=== PATIENT | female | born 2000 | race Caucasian/White ===

== ENCOUNTER 2022-03-19 11:57 | Emergency (ER) | payer OTHER ==
[~2022-03-19] VITALS: Ht 165.1 cm; Wt 146.5 kg
[~2022-03-19 11:57] MED LIST: CODACEE120 PO; CODGUAEL PO; IBUP600 PO; LOPE2C PO; NEOPOLHYDS OT; PROM12.5S PR; PROM25 PO; RXPROM12.S PR; SULTRIEL PO
[2022-03-19 14:15] LABS: Calcium, Ionized (POC) 1.11 mmol/L (1.10-1.46); Chloride (POC) 108 mmol/L (98-108); Creatinine (POC) 0.4 mg/dL (0.6-1.0); Glucose (ISTAT POC) 85 mg/dL (70-99); Hemoglobin (POC) 12.9 g/dL (12.0-16.0); Potassium (POC) 4.1 mmol/L (3.5-5.5); Sodium (POC) 136 mmol/L (135-148); Total CO2 (POC) 18 mmol/L (21-32)
== END 2022-03-19 14:58 | disposition home or self-care (01) ==
LOC: ER 11:57
PROVIDERS: Emergency Medicine
DX: O20.0 Threatened abortion (principal); Z3A.09 9 weeks gestation of pregnancy
CPT/HCPCS: 36415; 76801; 80047; 84702; 85014

== ENCOUNTER 2022-03-26 10:47 | Emergency (ER) | payer OTHER ==
[~2022-03-26] VITALS: Ht 165.1 cm; Wt 144.7 kg
[2022-03-26 11:44] LABS: BASOPHILS ABSOLUTE AUTO 0.06 K/mm3 (0.00-0.23); BASOPHILS PERCENT AUTO 0 % (0-2); EOSINOPHILS PERCENT AUTO 1 % (0-6); Hematocrit 31.7 % (33.0-51.0); Hemoglobin 10.5 g/dL (11.5-16.0); IMMATURE GRAN ABSOLUTE AUTO 0.15 K/mm3 (0.00-0.10); IMMATURE GRAN PERCENT AUTO 1 % (0-1); LYMPHOCYTES ABSOLUTE AUTO 2.74 K/mm3 (0.84-5.20); LYMPHOCYTES PERCENT AUTO 17 % (21-46); MONOCYTES ABSOLUTE AUTO 0.96 K/mm3 (0.16-1.47); MONOCYTES PERCENT AUTO 6 % (4-13); Mean Corpuscular HGB 28.6 pg (26.0-34.0); Mean Corpuscular HGB Conc 33.1 g/dL (31.5-36.5); Mean Corpuscular Volume 86 fL (80-100); Mean Platelet Volume 9.1 fL (9.1-12.4); NEUTROPHILS PERCENT AUTO 76 % (41-73); Platelet Count 356 K/mm3 (150-400); RDW Coefficient Variation 13.1 % (11.7-14.2); RDW Standard Deviation 41.1 fL (35.1-46.3); Red Blood Cell Count 3.67 M/mm3 (3.80-5.20); White Blood Cell Count 16.41 K/mm3 (4.00-11.30)
[2022-03-26] MEDS ORDERED: GLUCOPHAGE1000 M1 PO (13:39)
[2022-03-26 15:16] LABS: Bun/Creatinine Ratio 22.7 (12.0-20.0); Calcium, Blood 8.8 mg/dL (8.5-10.1); Creatinine, Blood 0.57 mg/dL (0.40-1.00); Potassium, Blood 4.4 mmol/L (3.5-5.5)
[2022-03-26] MEDS ORDERED: ONDA4ODT MM (16:17)
== END 2022-03-26 16:40 | disposition home or self-care (01) ==
LOC: ER 10:47
PROVIDERS: Emergency Medicine; Physician Assistant
DX: O03.9 Complete or unspecified spontaneous abortion without complication (principal); Z79.899 Other long term (current) drug therapy
CPT/HCPCS: 36415; 76801; 80048; 84702; 85025; J1885; J2405; J7030

== ENCOUNTER 2023-04-21 21:43 | Inpatient (IN) | payer OTHER ==
[~2023-04-21] VITALS: Ht 165.1 cm; Wt 148.6 kg
[~2023-04-21 21:43] MED LIST changes: +GLUCOPHAGE1000 M1 PO; +ONDA4ODT MM
[2023-04-21 22:33] VITALS: BP 136/74
[2023-04-21] MEDS ORDERED: LABE200 PO (22:54)
[2023-04-21] MEDS ORDERED: Calcium Carbon500 MG PO (22:54)
[2023-04-21 22:57] LABS: BASOPHILS ABSOLUTE AUTO 0.03 K/mm3 (0.00-0.23); BASOPHILS PERCENT AUTO 0 % (0-2); EOSINOPHILS ABSOLUTE AUTO 0.22 K/mm3 (0.00-0.68); EOSINOPHILS PERCENT AUTO 2 % (0-6); Hematocrit 36.3 % (33.0-51.0); Hemoglobin 11.9 g/dL (11.5-16.0); IMMATURE GRAN ABSOLUTE AUTO 0.06 K/mm3 (0.00-0.10); IMMATURE GRAN PERCENT AUTO 1 % (0-1); LYMPHOCYTES ABSOLUTE AUTO 3.01 K/mm3 (0.84-5.20); LYMPHOCYTES PERCENT AUTO 28 % (21-46); MONOCYTES ABSOLUTE AUTO 0.78 K/mm3 (0.16-1.47); MONOCYTES PERCENT AUTO 7 % (4-13); Mean Corpuscular HGB 28.1 pg (26.0-34.0); Mean Corpuscular HGB Conc 32.8 g/dL (31.5-36.5); Mean Corpuscular Volume 86 fL (80-100); NEUTROPHILS ABSOLUTE AUTO 6.76 K/mm3 (1.96-9.15); NEUTROPHILS PERCENT AUTO 62 % (41-73); Platelet Count 303 K/mm3 (150-400); RDW Coefficient Variation 14.6 % (11.7-14.2); RDW Standard Deviation 45.2 fL (35.1-46.3); Red Blood Cell Count 4.23 M/mm3 (3.80-5.20); White Blood Cell Count 10.86 K/mm3 (4.00-11.30)
[2023-04-21 23:51] LABS: Albumin, Blood 2.4 g/dL (3.4-5.0); Albumin/Globulin Ratio 0.6 (0.8-1.8); Bilirubin, Total 0.3 mg/dL (0.1-1.0); Calcium, Blood 9.6 mg/dL (8.5-10.1); Creatinine, Blood 0.76 mg/dL (0.40-1.00); Potassium, Blood 3.9 mmol/L (3.5-5.5); Total Protein, Blood 6.4 g/dL (6.4-8.2)
[2023-04-22] VITALS (37 sets, daily range): BP systolic 106–160; BP diastolic 57–101
--- NOTE | 2023-04-22 10:27 | NUR ---
REPORT TO VASQUEZ HARVEY
[2023-04-23] VITALS (27 sets, daily range): BP systolic 91–144; BP diastolic 57–94
[2023-04-23 16:43] LABS: PCO2 Cord - Arterial 58.3 mmHg (40-50); PO2 Cord - Arterial 21.3 mmHg (16-20); pH Cord - Arterial 7.21 (7.28-7.35)
[2023-04-23 16:46] LABS: PCO2 Cord - Venous 48.8 mmHg (40-50); PO2 Cord - Venous 34.6 mmHg (28-32); pH Umbilical Cord - Venous 7.29 (7.26-7.35)
[2023-04-24] VITALS (8 sets, daily range): BP systolic 119–148; BP diastolic 59–88
[2023-04-24 05:58] LABS: BASOPHILS ABSOLUTE AUTO 0.03 K/mm3 (0.00-0.23); BASOPHILS PERCENT AUTO 0 % (0-2); EOSINOPHILS PERCENT AUTO 0 % (0-6); Hemoglobin 9.2 g/dL (11.5-16.0); IMMATURE GRAN ABSOLUTE AUTO 0.18 K/mm3 (0.00-0.10); IMMATURE GRAN PERCENT AUTO 1 % (0-1); LYMPHOCYTES ABSOLUTE AUTO 2.35 K/mm3 (0.84-5.20); LYMPHOCYTES PERCENT AUTO 12 % (21-46); MONOCYTES ABSOLUTE AUTO 1.09 K/mm3 (0.16-1.47); MONOCYTES PERCENT AUTO 6 % (4-13); Mean Corpuscular HGB 28.2 pg (26.0-34.0); Mean Corpuscular HGB Conc 32.9 g/dL (31.5-36.5); Mean Corpuscular Volume 86 fL (80-100); NEUTROPHILS ABSOLUTE AUTO 15.37 K/mm3 (1.96-9.15); NEUTROPHILS PERCENT AUTO 81 % (41-73); Platelet Count 223 K/mm3 (150-400); RDW Coefficient Variation 14.8 % (11.7-14.2); RDW Standard Deviation 46.1 fL (35.1-46.3); Red Blood Cell Count 3.26 M/mm3 (3.80-5.20); White Blood Cell Count 19.02 K/mm3 (4.00-11.30)
--- NOTE | 2023-04-24 14:59 | NUR ---
agree with assessment
[2023-04-25 03:56] VITALS: BP 123/68
[2023-04-25 05:46] LABS: BASOPHILS ABSOLUTE AUTO 0.04 K/mm3 (0.00-0.23); BASOPHILS PERCENT AUTO 0 % (0-2); EOSINOPHILS ABSOLUTE AUTO 0.15 K/mm3 (0.00-0.68); EOSINOPHILS PERCENT AUTO 1 % (0-6); Hemoglobin 8.2 g/dL (11.5-16.0); IMMATURE GRAN ABSOLUTE AUTO 0.15 K/mm3 (0.00-0.10); IMMATURE GRAN PERCENT AUTO 1 % (0-1); LYMPHOCYTES ABSOLUTE AUTO 4.15 K/mm3 (0.84-5.20); LYMPHOCYTES PERCENT AUTO 28 % (21-46); MONOCYTES ABSOLUTE AUTO 0.84 K/mm3 (0.16-1.47); MONOCYTES PERCENT AUTO 6 % (4-13); Mean Corpuscular HGB Conc 31.5 g/dL (31.5-36.5); Mean Corpuscular Volume 89 fL (80-100); Mean Platelet Volume 10.1 fL (9.1-12.4); NEUTROPHILS ABSOLUTE AUTO 9.49 K/mm3 (1.96-9.15); NEUTROPHILS PERCENT AUTO 64 % (41-73); Platelet Count 238 K/mm3 (150-400); RDW Coefficient Variation 15.4 % (11.7-14.2); Red Blood Cell Count 2.93 M/mm3 (3.80-5.20); White Blood Cell Count 14.82 K/mm3 (4.00-11.30)
[2023-04-25 07:29] VITALS: BP 121/63
[2023-04-25] MEDS ORDERED: DOC250 PO (08:07)
[2023-04-25] MEDS ORDERED: Percocet 5-3251 EACH PO (08:07)
[2023-04-25] MEDS ORDERED: IBUP800 PO (08:07)
[2023-04-25] MEDS ORDERED: LABE100 PO (08:56)
--- NOTE | 2023-04-25 10:21 | NUR ---
GETTING READY TO GO HOME, JUST NEEDS BANDS MATCHED, HAS DC INSTRUCTIONS, HAS SCRIPTS FOR MEDS, HAS PPFU APPT HAS APPT FOR BABY TO ALSO RETURN ON THE 24 FOR JAUNDICE AND WT CHECK, ENCOUARGED TO CALL WITH QUESTIONS,
--- NOTE | 2023-04-25 11:00 | NUR ---
DC HOME WITH BABY, FOB CARRIED BABY OUT, PT WALKED OUT SLOWLY, PT HAS SCRIPTS AND PPFU APPT MADE HAS APPT WITH OFFICE TO REMOVE TIM DRESSING, BABY IS WELL, VOIDING AND STOOLING. HAS PPFU FOR FRIDAY AND BABY TO COME BACK ON XM BARBIE FOR TSB WT CHECK. PT DENIES ANY PROBLEMS AND ENCOURAGED TO CALL IF HAS ANY
== END 2023-04-25 10:55 | disposition home or self-care (01) | DRG 788 ==
LOC: OBS 21:43 → BC 21:44 → OBS 21:54 → BC 21:56
PROVIDERS: Obstetrics & Gynecology; ADMIT Advanced Practice Midwife
PROC: 4A1HXCZ Monitoring of Products of Conception, Cardiac Rate, External Approach (ICD-10-PCS; 2023-04-23)
PROC: 10D00Z1 Extraction of Products of Conception, Low, Open Approach (ICD-10-PCS; principal; 2023-04-23 15:30)
DX: O14.04 Mild to moderate pre-eclampsia, complicating childbirth (principal); O62.1 Secondary uterine inertia; O69.81X0 Labor and delivery complicated by cord around neck, without compression, not applicable or unspecified; O99.824 Streptococcus B carrier state complicating childbirth; Z3A.38 38 weeks gestation of pregnancy; Z37.0 Single live birth; O75.5 Delayed delivery after artificial rupture of membranes; O99.214 Obesity complicating childbirth; O76 Abnormality in fetal heart rate and rhythm complicating labor and delivery; Z79.899 Other long term (current) drug therapy; Z79.2 Long term (current) use of antibiotics
CPT/HCPCS: 36415; 51702; 59070; 80053; 82803; 85025; 86850; 86900; 86901; 86923; A9270; J0290; J0330; J0456; J0690; J1100; J1885; J2001; J2371; J2405; J2590; J2704; J2765; J3010; J7050; J7120